=== PATIENT | female | born 1935 | race Caucasian/White ===

== ENCOUNTER 2017-07-15 16:08 | Observation (INO) | payer MEDICARE ==
[2017-07-15] VITALS (7 sets, daily range): BP systolic 148–166; BP diastolic 57–71; PULSE 74–78; RESP 16–18; TEMP 97.3–98.6; O2SAT 95–100
[~2017-07-15] VITALS: Ht 162.6 cm; Wt 53.7 kg
[~2017-07-15 16:08] MED LIST: BENZ100 PO; ZITHTAB PO
[2017-07-15] MEDS ORDERED: ATEN100T PO (16:44)
[2017-07-15] MEDS ORDERED: ASPI81CH CHEW (16:44)
[2017-07-15] MEDS ORDERED: AMLO2.5T PO (16:44)
[2017-07-15] MEDS ORDERED: CALC950T2 PO (16:45)
[2017-07-15] MEDS ORDERED: LEVO50TA4 PO (16:46)
[2017-07-15] MEDS ORDERED: DICY20TA10 PO (16:46)
[2017-07-15] MEDS ORDERED: RALO1TAB PO (16:47)
[2017-07-15] MEDS ORDERED: PANT40TA3 PO (16:47)
[2017-07-15] MEDS ORDERED: TRAM50TA PO (16:47)
--- NOTE | 2017-07-15 16:55 | PD ---
HPI Chief Complaint: Syncope/Near-Syncope Time Seen by Provider: 16:46 Travel History International Travel<30 days: No Contact w/Intl Traveler<30days: No Traveled to known affect area: No History of Present Illness HPI 82-year-old female here for evaluation after syncopal episode. The patient reports that she was cooking at her stove at around 11:00 AM this morning when she had a syncopal episode and fell to the ground. She does not believe that she was unconscious for that long. She went to an urgent care facility who applied Steri-Strips to one of her skin tears on her left upper extremity and was advised to present to the emergency department for further evaluation. The patient denies head pain or head injury. She denies history of syncopal episodes or cardiac disease. She does have chronic back pain, however she states her back pain is a little worse in her mid and lower back. She is also having moderate pain to her left forearm and left arm where she has 2 skin tears and ecchymosis. Pain is constant, worse with movement and palpation. She denies any other injuries or pain anywhere else. No chest pain or dyspnea. She is on 81 mg of aspirin daily. No other antiplatelets or anticoagulants. She reports that her last tetanus was a year ago. PFSH Past Medical History Hx Anticoagulant Therapy: No Arthritis: Yes Heart Rhythm Problems: No Cancer: Yes (SKIN CA RLE, LHIP) Cardiovascular Problems: Yes (HTN, CHOL) High Cholesterol: Yes Chest Pain: No Congestive Heart Failure: No Diabetes: No Diminished Hearing: No Endocrine: Yes Gastrointestinal Disorders: Yes GERD: Yes Headaches: Yes Hypertension: Yes Immune Disorder: No Implanted Vascular Access Dvce: No Musculoskeletal: Yes Neurologic: Yes Psychiatric: No Reproductive: No Respiratory: No Migraines: Yes Thyroid Disease: Yes Triglycerides - High: Yes Tetanus Vaccination: < 5 Years Influenza Vaccination: Yes Menopausal: Yes Past Surgical History Abdominal Surgery: Yes (HERNIA REPAIR) Section: Yes Gynecologic Surgery: Yes (C SECTION/HYSTERECTOY) Hysterectomy: Yes Other Surgery: Yes Social History Alcohol Use: No Tobacco Use: No Substance Use: No Allergies-Medications (Allergen,Severity, Reaction): Coded Allergies: No Known Allergies (Unverified , 09/09/16) Reported Meds & Prescriptions Reported Meds & Active Scripts Active Reported Tramadol (Tramadol HCl) 50 Mg Tab 50 Mg PO Q6H PRN Raloxifene (Raloxifene HCl) 60 Mg Tab 60 Mg PO DAILY Pantoprazole (Pantoprazole Sodium) 40 Mg Tab 40 Mg PO DAILY Levothyroxine (Levothyroxine Sodium) 50 Mcg Tab 50 Mcg PO DAILY Dicyclomine (Dicyclomine HCl) 20 Mg Tab 20 Mg PO TID Calcitrate (Calcium Citrate) 200 Mg (950 Mg) Tab 950 Mg PO Atenolol 100 Mg Tab 100 Mg PO DAILY Aspirin 81 Mg Chew 81 Mg CHEW DAILY Amlodipine (Amlodipine Besylate) 2.5 Mg Tab 2.5 Mg PO DAILY Review of Systems Except as stated in HPI: all other systems reviewed are Neg Physical Exam Narrative GENERAL: Well-developed, well-nourished, awake, alert, GCS 15, no apparent distress. SKIN: Focused skin assessment warm/dry. 2 superficial lacerations to the patient's left upper extremity, one to her left lateral arm, and one to her left posterior forearm. There is mild surrounding ecchymosis to both of these skin tears. HEAD: Atraumatic. Normocephalic. EYES: Pupils equal and round. No scleral icterus. No injection or drainage. ENT: Mucous membranes pink and moist. NECK: Trachea midline. No JVD. No midline C-spine step-off or tenderness. CARDIOVASCULAR: Regular rate and rhythm. No murmur appreciated. RESPIRATORY: No accessory muscle use. Clear to auscultation. Breath sounds equal bilaterally. GASTROINTESTINAL: Abdomen soft, non-tender, nondistended. MUSCULOSKELETAL: Skin exam as above. Moderate tenderness to the left forearm with supple compartments. No obvious deformities. Normal range of motion in all joints and extremities. Mild midline thoracic spine and lumbar spine tenderness with scoliosis noted. No clubbing. No cyanosis. No edema. NEUROLOGICAL: Awake and alert. No obvious cranial nerve deficits. Motor grossly within normal limits. Normal speech. PSYCHIATRIC: Appropriate mood and affect; insight and judgment normal. Data Data Last Documented VS Vital Signs Date Time Temp Pulse Resp B/P (MAP) Pulse Ox O2 Delivery O2 Flow Rate FiO2 07/15/17 18:12 99 Room Air 07/15/17 18:11 74 16 156/63 (94) 07/15/17 17:34 98.6 Orders Orders Complete Blood Count With Diff (07/15/17 16:46) Comprehensive Metabolic Panel (07/15/17 16:46) Magnesium (Mg) (07/15/17 16:46) Ckmb (Isoenzyme) Profile (07/15/17 16:46) Troponin I (07/15/17 16:46) Act Partial Throm Time (Ptt) (07/15/17 16:46) Prothrombin Time / Inr (Pt) (07/15/17 16:46) Urinalysis - C+S If Indicated (07/15/17 16:46) Chest, Single Ap (07/15/17 16:46) Ct Brain W/O Iv Contrast(Rout) (07/15/17 16:46) Ct Cerv Spine W/O Contrast (07/15/17 16:46) Ecg Monitoring (07/15/17 16:46) Iv Access Insert/Monitor (07/15/17 16:46) Oximetry (07/15/17 16:46) Sodium Chloride 0.9% Flush (Ns Flush) (07/15/17 17:00) Ct Thor Spine W/O Contrast (07/15/17 ) Ct Lumb Spine W/O Contrast (07/15/17 ) Forearm (2vws) (07/15/17 ) Wound Care (07/15/17 16:46) Electrocardiogram (07/15/17 16:30) Urine Culture (07/15/17 18:07) Ceftriaxone Inj (Rocephin Inj) (07/15/17 18:45) Labs Laboratory Tests Test 07/15/17 17:55 07/15/17 18:07 White Blood Count 11.1 TH/MM3 Red Blood Count 4.63 MIL/MM3 Hemoglobin 13.5 GM/DL Hematocrit 41.2 % Mean Corpuscular Volume 88.9 FL Mean Corpuscular Hemoglobin 29.2 PG Mean Corpuscular Hemoglobin Concent 32.8 % Red Cell Distribution Width 13.5 % Platelet Count 265 TH/MM3 Mean Platelet Volume 7.3 FL Neutrophils (%) (Auto) 73.7 % Lymphocytes (%) (Auto) 17.3 % Monocytes (%) (Auto) 6.2 % Eosinophils (%) (Auto) 0.4 % Basophils (%) (Auto) 2.4 % Neutrophils # (Auto) 8.2 TH/MM3 Lymphocytes # (Auto) 1.9 TH/MM3 Monocytes # (Auto) 0.7 TH/MM3 Eosinophils # (Auto) 0.0 TH/MM3 Basophils # (Auto) 0.3 TH/MM3 CBC Comment DIFF FINAL Differential Comment Blood Urea Nitrogen 15 MG/DL Creatinine 1.10 MG/DL Random Glucose 121 MG/DL Total Protein 6.7 GM/DL Albumin 3.4 GM/DL Calcium Level 8.7 MG/DL Magnesium Level 1.8 MG/DL Alkaline Phosphatase 65 U/L Aspartate Amino Transf (AST/SGOT) 24 U/L Alanine Aminotransferase (ALT/SGPT) 23 U/L Total Bilirubin 0.4 MG/DL Sodium Level 139 MEQ/L Potassium Level 3.9 MEQ/L Chloride Level 102 MEQ/L Carbon Dioxide Level 30.5 MEQ/L Anion Gap 7 MEQ/L Estimat Glomerular Filtration Rate 48 ML/MIN Total Creatine Kinase 81 U/L Troponin I LESS THAN 0.02 NG/ML Urine Color YELLOW Urine Turbidity CLOUDY Urine pH 7.0 Urine Specific [place] 1.015 Urine Protein TRACE mg/dL Urine Glucose (UA) NEG mg/dL Urine Ketones TRACE mg/dL Urine Occult Blood SMALL Urine Nitrite POS Urine Bilirubin NEG Urine Leukocyte Esterase LARGE Urine RBC 10-14 /hpf Urine WBC 100-200 /hpf Urine WBC Clumps MOD Urine Squamous Epithelial Cells > 8 /hpf Urine Bacteria MANY /hpf Microscopic Urinalysis Comment CULTURE INDICATED MDM Medical Decision Making Medical Screen Exam Complete: Yes Emergency Medical Condition: Yes Interpretation(s) EKG: Sinus, rate 70, normal axis, normal intervals, no acute ischemic abnormality. Differential Diagnosis Syncope, dysrhythmia, anemia, metabolic abnormality, skin tear, intracranial abnormality, left forearm contusion versus fracture Narrative Course Initial vital signs show heart rate 78, blood pressure 148/57, pulse ox 100% on room air, oral temp of 98.6F. CBC: WBC 11.1, hemoglobin 13.5, hematocrit 41.2, platelets 265. CMP is essentially unremarkable. Cardiac enzymes are negative. UA is suggestive of UTI. Patient was started on Rocephin. CT head: CONCLUSION: 1. No acute intracranial abnormality. 2. Chronic small vessel ischemic change. 3. Retained secretions involving right sphenoid sinus. No mucosal thickening. CT cervical spine: CONCLUSION: 1. No fracture or dislocation. 2. Degenerative changes. 3. Carotid artery atherosclerotic calcifications. CT thoracic spine: CONCLUSION: No acute bony injury.. CT lumbar spine: CONCLUSION: No acute bony injury. Scoliosis lumbar spine to the left with degenerative disc disease L4-5 and facet arthritic changes at all levels bilaterally Left forearm x-ray: CONCLUSION: Under mineralized bones. No acute finding is identified. Chest x-ray: CONCLUSION: No acute cardiopulmonary abnormality is identified. Left arm and left forearm skin tears were irrigated and Steri-Strips were applied. Patient reports her last tetanus was a year ago. Patient was made aware of all findings. She is resting comfortably. She was written for a dose of Rocephin IV for her UTI. Carotid calcifications were noted on her CT cervical spine, and she may have stenosis which caused her syncopal episode. She also may have had a dysrhythmia. Because of this I would like to admit her for overnight observation for further evaluation. Case discussed with [facility] hospitalist Dr. Mumtaz Minaya who will admit the patient to her service for overnight observation. Patient is amenable to this plan. Diagnosis Primary Impression: Syncope Qualified Codes: R55 - Syncope and collapse Additional Impressions: UTI (urinary tract infection) Qualified Codes: N39.0 - Urinary tract infection, site not specified; R31.9 - Hematuria, unspecified Skin tear of left upper extremity Admitting Information Admitting Physician Requests: Observation Kota Santizo MD Jul 15, 2017 16:55
[2017-07-15] MEDS ORDERED: SODIUM CHLORIDE 0.9% FLUSH 10 ML FLUSH IVF PRN (17:00)
--- NOTE | 2017-07-15 17:46 | RADRPT ---
EXAM DATE/TIME: 07/15/2017 17:17 [facility] COMPARISON: CT BRAIN W/O CONTRAST, February 13, 2015, 19:13. INDICATIONS : Trauma, fall. Syncopal episode with loss of consciousness. RADIATION DOSE: 63.39 CTDIvol (mGy) MEDICAL HISTORY : Gastroesophageal reflux disease. Hypertension. SURGICAL HISTORY : section. Hysterectomy. ENCOUNTER: Initial ACUITY: 1 day PAIN SCALE: 2/10 LOCATION: cranial TECHNIQUE: Multiple contiguous axial images were obtained of the head. Using automated exposure control and adj ustment of the mA and/or kV according to patient size, radiation dose was kept as low as reasonably a chievable to obtain optimal diagnostic quality images. DICOM format image data is available electro nically for review and comparison. FINDINGS: CEREBRUM: Periventricular low attenuation change involving both cerebral hemispheres. The ventricles are normal for age. No evidence of midline shift, mass lesion, hemorrhage or acute infarction. No extra-axial fluid collections are seen. POSTERIOR FOSSA: The cerebellum and brainstem are intact. The 4th ventricle is midline. The cerebellopontine angle i s unremarkable. EXTRACRANIAL: The visualized portion of the orbits is intact. SKULL: The calvaria is intact. No evidence of skull fracture. CONCLUSION: 1. No acute intracranial abnormality. 2. Chronic small vessel ischemic change. 3. Retained secretions involving right sphenoid sinus. No mucosal thickening. Jimmie Obando Jr., MD on July 15, 2017 at 17:42 Board Certified Radiologist. This report was verified electronically.
--- NOTE | 2017-07-15 17:52 | RADRPT ---
EXAM DATE/TIME: 07/15/2017 17:29 [facility] COMPARISON: No previous studies available for comparison. INDICATIONS : Snycope, fall this morning landed on left arm. MEDICAL HISTORY : None. SURGICAL HISTORY : None. ENCOUNTER: Initial ACUITY: 1 day PAIN SCORE: 0/10 LOCATION: Bilateral chest FINDINGS: Portable AP view of the chest demonstrates a normal-sized cardiac silhouette with calcification of th e aorta. No effusion, consolidation, or pneumothorax is visualized. The bones and soft tissues demons trate no acute abnormality. CONCLUSION: No acute cardiopulmonary abnormality is identified. Mukesh Bartlett MD on July 15, 2017 at 17:50 Board Certified Radiologist. This report was verified electronically.
--- NOTE | 2017-07-15 17:58 | RADRPT ---
EXAM DATE/TIME: 07/15/2017 17:29 [facility] COMPARISON: No previous studies available for comparison. INDICATIONS : Snycope, fall this morning landed on left arm. MEDICAL HISTORY : None. SURGICAL HISTORY : None. ENCOUNTER: Initial ACUITY: 1 day PAIN SCORE: 10/10 LOCATION: Left Forearm FINDINGS: 2 views of the left forearm demonstrate no fracture or dislocation. Mineralization is decreased. No s oft tissue abnormality or radiopaque foreign body is identified. CONCLUSION: Under mineralized bones. No acute finding is identified. Mukesh Bartlett MD on July 15, 2017 at 17:56 Board Certified Radiologist. This report was verified electronically.
--- NOTE | 2017-07-15 18:01 | RADRPT ---
EXAM DATE/TIME: 07/15/2017 17:17 [facility] COMPARISON: No previous studies available for comparison. INDICATIONS : Trauma, fall. Syncopal episode with loss of consciousness. RADIATION DOSE: 26.18 CTDIvol (mGy) MEDICAL HISTORY : Gastroesophageal reflux disease. Hypertension. SURGICAL HISTORY : section. Hysterectomy. ENCOUNTER: Initial ACUITY: 1 day PAIN SCALE: 0/10 LOCATION: neck TECHNIQUE: Volumetric scanning of the cervical spine was performed. Multiplanar reconstructions in the sagittal, coronal and oblique axial planes were performed. Using automated exposure control and adjustment o f the mA and/or kV according to patient size, radiation dose was kept as low as reasonably achievable to obtain optimal diagnostic quality images. DICOM format image data is available electronically f or review and comparison. FINDINGS: VERTEBRAE: Normal vertebral body height. ALIGNMENT: No evidence of subluxation. Calcified plaque involving the carotid arteries bilaterally. C2-C3: A left paracentral disc bulge. No abutment of the cord or central canal stenosis. Neural foramina are patent. C3-C4: A mild broad-based disc bulge. No abutment of the cord or central canal stenosis. Neural foramina are patent bilaterally. C4-C5: A central disc bulge. No abutment of the cord or central canal stenosis. Neural foramina are patent b ilaterally. C5-C6: A central disc bulge. No abutment of the cord or central canal stenosis. Neural foramina are patent b ilaterally. C6-C7: The bony spinal canal is normal in size. No evidence of disc bulge or herniation. The neural forami na are bilaterally patent. C7-T1: The bony spinal canal is normal in size. No evidence of disc bulge or herniation. The neural forami na are bilaterally patent. CONCLUSION: 1. No fracture or dislocation. 2. Degenerative changes. 3. Carotid artery atherosclerotic calcifications. Jimmie Obando Jr., MD on July 15, 2017 at 17:47 Board Certified Radiologist. This report was verified electronically.
[2017-07-15 18:08] LABS: AUTOMATED NEUTROPHIL # 8.2 TH/MM3 (1.8-7.7); BASOPHIL # 0.3 TH/MM3 (0-0.2); BASOPHIL % 2.4 % (0.0-2.0); EOSINOPHIL % 0.4 % (0.0-4.0); HEMATOCRIT 41.2 % (35.0-46.0); HEMO FLAGS DIFF FINAL; LYMPH % 17.3 % (9.0-44.0); LYMPHOCYTE # 1.9 TH/MM3 (1.0-4.8); MEAN CELL VOLUME 88.9 FL (80.0-100.0); MEAN CORPUSCULAR HEMOGLOBIN 29.2 PG (27.0-34.0); MEAN CORPUSCULAR HGB CONC 32.8 % (32.0-36.0); MONO % 6.2 % (0.0-8.0); NEUT % 73.7 % (16.0-70.0); PLATELET COUNT 265 TH/MM3 (150-450); RED BLOOD COUNT 4.63 MIL/MM3 (4.00-5.30); RED CELL DISTRIBUTION WIDTH 13.5 % (11.6-17.2); WHITE BLOOD COUNT 11.1 TH/MM3 (4.0-11.0)
[2017-07-15 18:16] LABS: CHLORIDE 102 MEQ/L (98-107); POTASSIUM 3.9 MEQ/L (3.5-5.1); SODIUM (NA) 139 MEQ/L (136-145)
[2017-07-15 18:19] LABS: ANION GAP 7 MEQ/L (5-15); BICARBONATE 30.5 MEQ/L (21.0-32.0)
[2017-07-15 18:20] LABS: BLOOD UREA NITROGEN 15 MG/DL (7-18); MAGNESIUM 1.8 MG/DL (1.5-2.5)
[2017-07-15 18:22] LABS: ALT (GPT) 23 U/L (10-53)
[2017-07-15 18:23] LABS: AST (GOT) 24 U/L (15-37); GLOMERULAR FILTRATION RATE 48 ML/MIN (>89)
--- NOTE | 2017-07-15 18:23 | RADRPT ---
EXAM DATE/TIME: 07/15/2017 17:22 [facility] COMPARISON: No previous studies available for comparison. INDICATIONS : Trauma, fall. Syncopal episode with loss of consciousness. Back pain. RADIATION DOSE: 21.97 CTDIvol (mGy) ; Combined studies - Thoracic Spine/Lumbar Spine MEDICAL HISTORY : Gastroesophageal reflux disease. Hypertension. SURGICAL HISTORY : section. Hysterectomy. ENCOUNTER: Initial ACUITY: 1 day PAIN SCALE: 0/10 LOCATION: Thoracic spine. TECHNIQUE: Volumetric scanning of the thoracic spine was performed. Multiplanar reconstructions in the sagittal , coronal and oblique axial planes were performed. Using automated exposure control and adjustment o f the mA and/or kV according to patient size, radiation dose was kept as low as reasonably achievable to obtain optimal diagnostic quality images. DICOM format image data is available electronically f or review and comparison. FINDINGS: The vertebral bodies of the thoracic spine are in normal alignment without evidence of subluxation. Vertebral body height is maintained. No fractures are seen. Mild scoliosis and thoracic spine to the right. T1-T2: Normal. T2-T3: The thecal sac has a normal diameter. No evidence of disc bulge or protrusion. T3-T4: The thecal sac has a normal diameter. No evidence of disc bulge or protrusion. T4-T5: The thecal sac has a normal diameter. No evidence of disc bulge or protrusion. T5-T6: The thecal sac has a normal diameter. No evidence of disc bulge or protrusion. T6-T7: The thecal sac has a normal diameter. No evidence of disc bulge or protrusion. T7-T8: The thecal sac has a normal diameter. No evidence of disc bulge or protrusion. T8-T9: The thecal sac has a normal diameter. No evidence of disc bulge or protrusion. T9-T10: The thecal sac has a normal diameter. No evidence of disc bulge or protrusion. T10-T11: The thecal sac has a normal diameter. No evidence of disc bulge or protrusion. T11-T12: The thecal sac has a normal diameter. No evidence of disc bulge or protrusion. Mild anterior margina l spurring with vacuum sign in this space. T12-L1: The thecal sac has a normal diameter. No evidence of disc bulge or protrusion. CONCLUSION: No acute bony injury.. Joseph Mustafa MD on July 15, 2017 at 18:16 Board Certified Radiologist. This report was verified electronically.
[2017-07-15 18:24] LABS: TOTAL BILIRUBIN ADULT 0.4 MG/DL (0.2-1.0)
[2017-07-15 18:25] LABS: ALKALINE PHOSPHATASE 65 U/L (45-117)
--- NOTE | 2017-07-15 18:28 | RADRPT ---
EXAM DATE/TIME: 07/15/2017 17:22 [facility] COMPARISON: No previous studies available for comparison. INDICATIONS : Trauma, fall. Syncopal episode with loss of consciousness. Back pain. RADIATION DOSE: 21.97 CTDIvol (mGy) MEDICAL HISTORY : Hypertension. Gastroesophageal reflux disease. SURGICAL HISTORY : section. Hysterectomy. ENCOUNTER: Initial ACUITY: 1 day PAIN SCALE: 7/10 LOCATION: Lumbar spine. TECHNIQUE: Volumetric scanning of the lumbar spine was performed. Multiplanar reconstructions in the sagittal, coronal and oblique axial planes were performed. Using automated exposure control and adjustment of the mA and/or kV according to patient size, radiation dose was kept as low as reasonably achievable t o obtain optimal diagnostic quality images. DICOM format image data is available electronically for review and comparison. FINDINGS: The bony structures reveal scoliosis of the lumbar spine and upper portion lumbar thoracic junction t o the left. Bony structures are intact with no evidence of fracture, compression, destructive change or subluxation. There is degenerative disc disease with narrowing of L4-5 disc space with anterior ma rginal spurring at this level as well as at the fracture lumbar junction and facet arthritic changes throughout the lumbar spine bilaterally. CONCLUSION: No acute bony injury. Scoliosis lumbar spine to the left with degenerativ e disc disease L4-5 and facet arthritic changes at all levels bilaterally Joseph Mustafa MD on July 15, 2017 at 18:23 Board Certified Radiologist. This report was verified electronically.
[2017-07-15 18:30] LABS: CREATINE KINASE 81 U/L (26-192)
[2017-07-15 18:33] LABS: BLOOD, URINE SMALL (NEG); GLUCOSE,URINE NEG (NEG); KETONE, URINE TRACE mg/dL (NEG); NITRITE,URINE POS (NEG)
[2017-07-15 18:39] LABS: URINE COLOR YELLOW (YELLW/STRAW)
[2017-07-15 18:40] LABS: SQUAMOUS EPITHELIAL CELL URINE > 8 /hpf (0-5); WBC, URINE 100-200 /hpf (0-5)
[2017-07-15 18:41] LABS: BACTERIA, URINE MANY /hpf; COMMENT (UR) CULTURE INDICATED; CULTURE IF INDICATED CULTURE INDICATED
[2017-07-15] MEDS ORDERED: cefTRIAXone INJ 1,000 MG in SODIUM CHLORIDE 0.9% INJ 100 ML IV ONE (18:45)
[2017-07-15] MEDS: ACETAMINOPHEN 325 MG TAB PO PRN (23:08)
[2017-07-16] VITALS: BP 136/63; PULSE 71; RESP 16; TEMP 96.8; O2SAT 96
[2017-07-16 04:00] VITALS: BP 134/68; PULSE 74; RESP 16; TEMP 96.8; O2SAT 96
[2017-07-16] MEDS ORDERED: LEVOTHYROXINE SODIUM 50 MCG TAB PO SCH (06:00)
[2017-07-16] MEDS: ACETAMINOPHEN 325 MG TAB PO PRN (06:55)
[2017-07-16 08:00] VITALS: BP 151/71; PULSE 68; RESP 19; TEMP 96.4; O2SAT 98
[2017-07-16] MEDS ORDERED: ATENOLOL 50 MG TAB PO SCH (09:00)
[2017-07-16] MEDS ORDERED: amLODIPine BESYLATE 5 MG TAB PO SCH (09:00)
[2017-07-16] MEDS ORDERED: ASPIRIN 81 MG CHEW TAB CHEW SCH (09:00)
[2017-07-16] MEDS ORDERED: PANTOPRAZOLE SOD 40 MG DELAYED RELEASE TAB PO SCH (09:00)
[2017-07-16] MEDS ORDERED: RALOXIFENE HCL 60 MG TAB PO SCH (09:00)
[2017-07-16] MEDS: DICYCLOMINE HCL 20 MG TAB PO SCH ×3 (09:04→17:18)
[2017-07-16] MEDS ORDERED: SODIUM CHLOR 0.45% 1000 ML INJ 1,000 ML IV SCH (10:45)
--- NOTE | 2017-07-16 11:29 | MH ---
cc: HIEN LERNER DATE OF ADMISSION: 07/15/2017 HISTORY OF PRESENT ILLNESS Ms. Rodas is a very pleasant 82-year-old female patient of Dr. Mynor Spaulding who was brought to the emergency room by the family after presenting to the urgent care for a fall. According to the patient she was doing well and in her regular state of health until yesterday mid morning (she states she normally sleeps late). She had gotten up around 6:00 a.m. and took her thyroid medication, went back to bed, woke up mid morning to make her breakfast. She suffers from chronic low back pain. She said when she got up she went to the kitchen to make herself breakfast planning to go lay down again. She felt a little bit of what she describes as woozy a little bit nauseous and suddenly she passed out while she was in front of the stove. She states she woke up shortly thereafter, does not feel that she was out that long, was lying on her left side and had to call her [id number] who she lives with along with her son to help get her up. She then went to her bedroom, cleaned herself up, apologized to her [id number] for the mess she had left in the kitchen with the food and everything when she fell, and then went to wake her son to take her to get some care for her left arm which had some skin tears on it. She states she went to the [facility] where her skin tear was tended to, but she was told to come to the emergency room because she had passed out. She states that presently she feels fine. When all this occurred she had no preceding chest pain or palpitations. She had no residual weakness when she first got up with difficulty talking or expressing herself. She says that right now she is able to ambulate well. She just has some chronic back pain and a little bit of extra soreness on her left side where she fell. PAST MEDICAL HISTORY Past medical history is significant for chronic low back pain. She has a history of degenerative disc disease in her back. She has history of reflux, hyperlipidemia, hypertension, hypothyroidism. She has had falls with pelvic fractures in the past. She does have osteoporosis. PAST SURGICAL HISTORY Past surgical history includes an appendectomy and inguinal hernia repair. She has had cataract extractions and total abdominal hysterectomy. ALLERGIES SHE DENIES ANY ALLERGIES TO ANTIBIOTICS. SHE DOES SAY THAT GABAPENTIN WILL CAUSE SOME SWELLING, AND HAS HAD A RASH WITH ANOTHER MEDICATION. HER EHR CHART SAYS ANTHONY. MEDICATIONS Current medications include: 1. Amlodipine 2.5 mg daily. 2. Baby aspirin. 3. Atenolol 100 mg daily. 4. Atorvastatin 20 mg daily. 5. Calcium. 6. Centrum Silver. 7. when needed. 8. Levothyroxine 50 mcg daily. 9. Raloxifene 60 mg daily. 10. Protonix 40 mg daily. 11. She says she has a prescription for Tramadol but she does not really use it for her back. She uses Tylenol Extra-Strength. She feels that helps it just as well. HABITS She does not consume alcohol. She used to smoke, a pack a day for almost 50 years. She no longer smokes. SOCIAL HISTORY She is . She currently lives with her son and [id number] in [place]. She is a retired nurse. She is independent in activities of daily living. She continues to drive. REVIEW OF SYSTEMS No fevers or chills. No cough. No chest pain or palpitations. She states she did have some nausea prior to passing out. She does have occasional problems with diarrhea. She does say that with urination she is a little bit incontinent. She does tell me that for the last year she has been having problems with her memory but that this is nothing acute. PHYSICAL EXAMINATION VITAL SIGNS: Temperature 96.4, pulse 68, respirations 19, blood pressure 151/71. Pulse ox on room air is 98%. GENERAL: This is an elderly female lying in the hospital bed. She is quite alert and then talkative, fairly friendly. HEENT: Normocephalic and traumatic. EOM intact. She has a clear oral mucosa. NECK: Supple. I really hear no bruits. LUNGS: Clear to auscultation bilaterally. HEART: Regular. She has no ectopy. ABDOMEN: Good bowel sounds in all four quadrants. EXTREMITIES: No clubbing, cyanosis or edema. She does have some areas of ecchymosis on her left lower extremity. She does have skin tears on her left upper extremity which have been wrapped. She does have an area of ecchymosis on her left flank which she says it is just a little bit tender. LABORATORY Lab work that was done when she came in showed a sodium of 139, potassium 3.9, BUN 15, creatinine 1.1, glucose 121. LFTs were normal. CK was 81. Troponin was less than 0.02. White count 11.1, hemoglobin 13.5, hematocrit 41.2, platelet count 265. Toxicology screen was negative. UA showed positive nitrites and bacteria; culture is indicated. IMAGING Multiple imaging tests were done when she came in. CT scan of the cervical spine showed no fracture-dislocation, degenerative changes, carotid atherosclerotic calcifications. Chest x-ray showed no acute cardiopulmonary abnormality. CT of the brain showed no acute intracranial abnormality, chronic small vessel ischemic changes, retained secretions in the right sphenoid sinus, no mucosal thickening. Lumbar spine CT showed no acute bony injuries, scoliosis of the lumbar spine to the left with degenerative disc disease at L4-5 and arthritis through all levels bilaterally. X-ray of the forearm showed under-mineralized bone, no acute findings. Thoracic spine CT showed no acute bony injury. ASSESSMENT AND PLAN 1. An 82-year-old female presenting to the emergency room with episode of syncope. This morning she seems quite alert and she feels back to baseline according to her. Currently the syncope work-up is underway with echocardiogram, carotid ultrasounds particularly because of the atherosclerotic plaque on the cervical spine CT, as well as a Holter monitor. 2. She appears to have a UTI on her lab work. She has been started on antibiotics. Culture is pending. 3. For her chronic low back pain she seems to do quite well with just the Tylenol at present even despite the fall, so will continue with the Tylenol. 4. Hypertension. Continue with her at home antihypertensives. 5. I reviewed her [facility] chart and her renal function is a little bit better than it is currently. I do think she has a little bit of renal insufficiency, very possibly secondary to some dehydration. Will go ahead and hydrate her gently. If her ultrasound shows any abnormality we may need to do a CTA on her. 6. Pending the results of these tests will be further disposition. Hien Lerner MD [facility]SLana/BT /10:38 AM /11:00 AM
[2017-07-16 12:00] VITALS: BP 145/86; PULSE 65; RESP 20; TEMP 96.8; O2SAT 98
[2017-07-16 12:16] LABS: POTASSIUM 3.4 MEQ/L (3.5-5.1)
[2017-07-16 12:19] LABS: BICARBONATE 30.3 MEQ/L (21.0-32.0)
--- NOTE | 2017-07-16 12:32 | ECHRPT ---
Indication: syncope CONCLUSIONS Normal left ventricular size and function with estimated ejection fraction of 50% Wall thickness is normal. No regional wall motion abnormalities are present. Trace mitral valve regurgitation. There is trace tricuspid valve regurgitation. The estimated pulmonary arterial pressure is 29.5 mmHg. Trivial pulmonary valve regurgitation. BP: 134 / 68 HR: 90 Rhythm: Sinus MEASUREMENTS (Male / Female) Normal Values Technical Quality:Fair 2D ECHO LV Diastolic Diameter PLAX 5.0 cm 4.2 - 5.9 / 3.9 - 5.3 cm LV Systolic Diameter PLAX 3.2 cm IVS Diastolic Thickness 1.0 cm 0.6 - 1.0 / 0.6 - 0.9 cm LVPW Diastolic Thickness 1.0 cm 0.6 - 1.0 / 0.6 - 0.9 cm LV Relative Wall Thickness 0.4 RV Internal Dim ED PLAX 2.6 cm LVOT Diameter 1.9 cm LA Systolic Diameter LX 3.2 cm 3.0 - 4.0 / 2.7 - 3.8 cm M-MODE Aortic Root Diameter MM 3.0 cm AV Cusp Separation MM 2.1 cm DOPPLER AV Peak Velocity 99.9 cm/s AV Peak Gradient 4.0 mmHg LVOT Peak Velocity 71.6 cm/s LVOT Peak Gradient 2.1 mmHg AV Area Cont Eq pk 2.0 cm MV Area PHT 3.5 cm Mitral E Point Velocity 60.7 cm/s Mitral A Point Velocity 87.9 cm/s Mitral E to A Ratio 0.7 TR Peak Velocity 221.0 cm/s TR Peak Gradient 19.5 mmHg Right Atrial Pressure 10.0 mmHg Pulmonary Artery Systolic Pressu 29.5 mmHg Right Ventricular Systolic Press 29.5 mmHg PV Peak Velocity 75.6 cm/s PV Peak Gradient 2.3 mmHg FINDINGS LEFT VENTRICLE The left ventricular systolic function is normal with an estimated ejection fraction in the range of 60-65%. Normal left ventricular size. Wall thickness is normal. No regional wall motion abnormalities are present. RIGHT VENTRICLE Normal right ventricular size and systolic function. LEFT ATRIUM The left atrial size is normal. RIGHT ATRIUM The right atrial size is normal. ATRIAL SEPTUM Normal atrial septal thickness without atrial level shunting by limited color doppler interrogation. AORTA The aortic root and proximal ascending aorta are normal in size on limited imaging. MITRAL VALVE Structurally normal mitral valve. Trace mitral valve regurgitation. AORTIC VALVE Trileaflet aortic valve. No aortic valve stenosis or regurgitation. TRICUSPID VALVE Structurally normal tricuspid valve. There is trace tricuspid valve regurgitation. The estimated pulmonary arterial pressure is 29.5 mmHg. PULMONARY VALVE Trivial pulmonary valve regurgitation. VESSELS The inferior vena cava is normal in size. PERICARDIUM No pericardial effusion. Salomón Acosta MD (Electronically Signed) Final Date:16 July 2017 12:31
--- NOTE | 2017-07-16 12:51 | RADRPT ---
EXAM DATE/TIME: 07/16/2017 12:05 [facility] COMPARISON: No previous studies available for comparison. INDICATIONS : Syncope. MEDICAL HISTORY : Hypercholesterolemia. Hypertension. Arthritis. Thyroid disease. Hyperlipidemia. SURGICAL HISTORY : section. Hysterectomy. Hernia repair. ENCOUNTER: Initial ACUITY: 1 day PAIN SCORE: 4/10 LOCATION: Bilateral neck PEAK SYSTOLIC VELOCITIES (cm/sec): ICA/CCA RATIO: Right: 1.4 Left: 0.6 ICA: Right: 109 Left: 69 CCA: Right: 75 Left: 125 ECA: Right: 75 Left: 83 VERTEBRAL: Left: 69 antegrade Elevated flow velocities and ICA/CCA ratios have been found to correlate with increased degrees of vessel stenosis, calculated as percentage of diameter relative to a normal segment of distal ICA/CCA FINDINGS: There is moderate visible plaque in the carotid arteries bilaterally, especially around the carotid b ifurcations without hemodynamically significant stenosis. Vertebral artery flow is antegrade bilatera lly. CONCLUSION: 1. Moderate visible plaque in the carotid arteries without evidence for hemodynamically significant s tenosis. Rigoberto Cortes MD on July 16, 2017 at 12:48 Board Certified Radiologist. This report was verified electronically.
[2017-07-16] MEDS ORDERED: BACT800T5 PO (17:17)
--- NOTE | 2017-07-16 17:20 | HHI.FF ---
Face to Face Verification Diagnosis: (1) Syncope (2) UTI (urinary tract infection) (3) Skin tear of left upper extremity Home Health Nursing Order: Wound care and dressing changes I have seen patient Ro Rodas on 07/16/17. My clinical findings support the need for the requested home health care services because: Limited ability to care for self I certify that my clinical findings support that this patient is homebound because: Unsteady gait/balance Hien Mcdonald MD Jul 16, 2017 17:20
[2017-07-16] MEDS ORDERED: cefTRIAXone INJ 1,000 MG in SODIUM CHLORIDE 0.9% INJ 100 ML IV SCH (18:00)
--- NOTE | 2017-07-16 22:02 | EKG ---
Date Performed: 07/15/2017 Time Performed: 16:30:46 PTAGE: 82 years EKG: Sinus rhythm MINIMAL VOLTAGE CRITERIA FOR LVH, CONSIDER NORMAL VARIANT BORDERLINE ECG PREVIOUS TRACING : 02/13/2015 16.09 Compared to prior tracing no significant change DOCTOR: Billy Lantigua Interpretating Date/Time 07/16/2017 21:34:03
--- NOTE | 2017-07-18 13:47 | HM ---
Date Performed: 07/15/2017 Time Performed: 20:42:00 HOOKUP DATE: 07/15/17 08:42:00 PM Jennifer ANALYSIS START TIME: 07/15/2017 8:47:00 PM ANALYSIS END TIME: 07/16/2017 6:16:00 PM PATIENT AGE: 82 PATIENT HEIGHT PATIENT WEIGHT DRUG LIST PATIENT DIAGNOSIS TEST NARRATIVE: The patient's average heart rate was 69 BPM. No episodes of tachycardia wer e noted. Heart rates less than 50 BPM were noted < 1% of the time. No pauses exceeding 2.0 secon ds were noted. No ventricular ectopics were noted. 8 supraventricular ectopics, which represe nted < 1% of the total beat count, were noted. The highest supraventricular ectopic frequency occurr ed from 03:00 PM to 04:00 PM Fri. During this time 2 SVE(s) occurred. No episodes of ST depressi on (defined as -1.0 mm or more) were noted in channel 1. No episodes of ST depression (defined as -1 .0 mm or more) were noted in channel 2. No episodes of ST depression (defined as -1.0 mm or more) we re noted in channel 3. TEST INTERPRETATION: PACS , NO SIGNIFICANT ARRHYTHMIAS Signed by : Asha Yoon
== END 2017-07-16 18:37 | disposition home health service (06) ==
LOC: PHED 16:08 → PHEDA 19:30 → PH3B 20:44
PROVIDERS: ADMIT Legal Medicine; ATTEND Legal Medicine
DX: R55 Syncope and collapse (principal); S41.112A Laceration without foreign body of left upper arm, initial encounter; G89.29 Other chronic pain; M54.5 Low back pain; R42 Dizziness and giddiness; R11.0 Nausea; N39.0 Urinary tract infection, site not specified; K21.9 Gastro-esophageal reflux disease without esophagitis; I10 Essential (primary) hypertension; E78.5 Hyperlipidemia, unspecified; E03.9 Hypothyroidism, unspecified; E07.9 Disorder of thyroid, unspecified; M79.632 Pain in left forearm; E78.00 Pure hypercholesterolemia, unspecified; G43.909 Migraine, unspecified, not intractable, without status migrainosus; B96.20 Unspecified Escherichia coli [E. coli] as the cause of diseases classified elsewhere; W19.XXXA Unspecified fall, initial encounter; Y92.010 Kitchen of single-family (private) house as the place of occurrence of the external cause
CPT/HCPCS: 70450; 71010; 72125; 72128; 72131; 73090; 80048; 80053; 80307; 81001; 82550; 83735; 84484; 85025; 87077; 87086; 87186; 93005; 93225; 93226; 93306; 93880; 96361; 96365; 96376; 99285; G0378; J0696